=== PATIENT | female | born 1965 | race Caucasian/White ===

== ENCOUNTER 2020-08-31 07:06 | Day surgery (SDC) | payer MEDICARE, MEDICAID ==
[2020-08-30 11:39] LABS: BASOPHILS # (AUTO) 0.1 X10'3 (0-0.2); BASOPHILS % (AUTO) 1.1 % (0-1); EOSINOPHILS # (AUTO) 0.4 X10'3 (0-0.9); EOSINOPHILS % (AUTO) 8.7 % (0-6); HEMATOCRIT 26.9 % (35.0-45.0); HEMOGLOBIN 8.8 g/dl (12.0-16.0); LYMPHOCYTES # (AUTO) 1.4 X10'3 (1.1-4.8); LYMPHOCYTES % (AUTO) 29.7 % (21-51); MEAN CORPUSCULAR HEMOGLOBIN 34.7 PG (27.0-31.0); MEAN CORPUSCULAR HGB CONC 32.6 g/dL (33.0-36.5); MEAN CORPUSCULAR VOLUME 106.2 FL (78-98); MONOCYTES # (AUTO) 0.5 X10'3 (0-0.9); MONOCYTES % (AUTO) 9.6 % (2-12); NEUTROPHILS # (AUTO) 2.5 X10'3 (1.8-7.7); NEUTROPHILS % (AUTO) 50.9 % (42-75); PLATELET COUNT 242 X10'3 (140-440); RED BLOOD COUNT 2.54 X10'6 (4.20-5.60); RED CELL DISTRIBUTION WIDTH 14.2 % (11.5-14.5); WHITE BLOOD COUNT 4.9 X10'3 (4.5-11.0)
[2020-08-30 11:47] LABS: ALBUMIN 2.8 G/DL (3.4-5.0); ANION GAP 13 (8-16); BLOOD UREA NITROGEN 85 MG/DL (7-18); BUN/CREATININE RATIO 8.7 (6.6-38.0); CALCIUM 9.2 MG/DL (8.5-10.1); CHLORIDE 98 MMOL/L (99-107); CREATININE 9.78 MG/DL (0.40-0.90); GLUCOSE 94 MG/DL (70-104); POTASSIUM 4.8 MMOL/L (3.5-5.1); SODIUM 136 MMOL/L (135-145); TOTAL CARBON DIOXIDE 25.5 MMOL/L (24-32); eGFR 4 ML/MIN
[2020-08-30 11:55] LABS: PARTIAL THROMBOPLASTIN TIME 26 SECONDS (22-32)
[~2020-08-31] VITALS: Ht 160 cm; Wt 65.6 kg
[2020-08-31] VITALS (12 sets, daily range): BP systolic 107–156; BP diastolic 43–81
[2020-08-31] MEDS ORDERED: LORazepam 0.5 MG tablet PO PRN (07:25)
[2020-08-31] MEDS ORDERED: normal saline 1,000 ML IV SCH (07:25)
[2020-08-31] MEDS ORDERED: diphenhydrAMINE 25mg capsule PO PRN (07:25)
[2020-08-31] MEDS ORDERED: LIDOcaine/PRILOcaine 5gm cream TP ONE (07:30)
[2020-08-31] MEDS ORDERED: sodium bicarbonate (8.4%) inj. 75 ML in dextrose 5% water 500ml 500 ML IV SCH (07:30)
[2020-08-31] MEDS ORDERED: MEMA5TAB42 PO (07:32)
[2020-08-31] MEDS ORDERED: CALC500T11 PO (07:38)
[2020-08-31] MEDS ORDERED: LORA-512 PO (07:38)
[2020-08-31] MEDS ORDERED: AMLO2.5T2 PO (07:38)
[2020-08-31] MEDS ORDERED: LABE300T2 PO (07:38)
[2020-08-31] MEDS ORDERED: CALCIUM PO (07:38)
--- NOTE | 2020-08-31 08:00 | NUR ---
PT REFUSING IV IN FOOT STATES SHE WOULD LIKE HER ARM USED. 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 PT HAS WORKING FISTULA ON LEFT ARM THAT IS NOT TO BE USED. PT AGREED TO IV IN LOWER LEG IN PLACE OF FOOT IV REQUESTED BY MYSELF. EMLA CREAM APPLIED TO SITE AND ALLOWED TO NUMB. 20G PIV PLACED TO LEFT LOWER EXTREMITY, MASTER PRINTER NOTIFIED OF PTS IV STATUS. Jose Rafael TOMPKINS PICC RN
[2020-08-31] MEDS ORDERED: LIDOcaine 1% (10mg/ml)w/preservative injection 20ml MDV ONE (09:36)
[2020-08-31] MEDS ORDERED: midazolam 1 mg/ML 2ml injection ONE ×2 (09:36→10:59)
[2020-08-31] MEDS ORDERED: fentaNYL/PF 50MCG/1 ML 2ML syringe ONE (09:36)
[2020-08-31] MEDS ORDERED: heparin 1,000unit/ml 10ml vial 10 ML ONE (09:36)
[2020-08-31] MEDS ORDERED: nitroGLYCERIN-Tridil 50MG/D5W 250 ML IV ONE (09:37)
[2020-08-31] MEDS ORDERED: iohexol 350MG/ML 100ml bottle IV ONE (09:37)
[2020-08-31] MEDS ORDERED: iohexol 350 MG/ML 50ML vial IV ONE (09:37)
[2020-09-01 09:32] LABS: ISTAT HGB ART 8.8 g/dl (12.0-16.0); ISTAT Hct ART 26 %PCV (35-48); ISTAT O2 SATURATION ARTERIAL 98 % (95-98); ISTAT SOURCE ART
== END 2020-08-31 17:00 | disposition home or self-care (01) ==
LOC: SSTAY O 07:06 → MERGE 09:30 → SSTAY O 17:00
PROVIDERS: ATTEND Internal Medicine Cardiovascular Disease
DX: Z01.810 Encounter for preprocedural cardiovascular examination (principal); I25.10 Atherosclerotic heart disease of native coronary artery without angina pectoris; I12.0 Hypertensive chronic kidney disease with stage 5 chronic kidney disease or end stage renal disease; N18.6 End stage renal disease; E78.5 Hyperlipidemia, unspecified; Z72.89 Other problems related to lifestyle; F12.90 Cannabis use, unspecified, uncomplicated; Z88.8 Allergy status to other drugs, medicaments and biological substances; Z88.5 Allergy status to narcotic agent; Z88.2 Allergy status to sulfonamides; Z91.09 Other allergy status, other than to drugs and biological substances; Z79.899 Other long term (current) drug therapy; Z99.2 Dependence on renal dialysis
CPT/HCPCS: 36415; 76937; 80048; 82803; 85014; 85025; 85610; 85730; 93005; 93460; 99152; 99153; C1760; C1769; C1894; J1644; J2001; J2250; J3010; Q0163; Q9967; A6258; C1751; J3490

== ENCOUNTER 2021-12-27 05:58 | Day surgery (SDC) | payer BC, MEDICAID ==
[2021-12-27] VITALS (11 sets, daily range): BP systolic 148–198; BP diastolic 48–76
[~2021-12-27] VITALS: Ht 160 cm; Wt 60.8 kg
[~2021-12-27 05:58] MED LIST: AMLO2.5T2 PO; CALC500T11 PO; CALCIUM PO; LABE300T4 PO; LORA-512 PO; MEMA5TAB42 PO
[2021-12-27] MEDS ORDERED: LORA-512 PO (06:42)
[2021-12-27] MEDS ORDERED: MEMA5TAB PO (06:42)
[2021-12-27] MEDS ORDERED: acetylcysteine 200 MG/ml 4ml vial PO PRN (06:50)
[2021-12-27] MEDS ORDERED: LIDOcaine/PRILOcaine 5gm cream TP ONE (06:50)
[2021-12-27] MEDS ORDERED: normal saline 1,000 ML IV SCH (06:50)
[2021-12-27] MEDS: diphenhydrAMINE 25mg capsule PO PRN ×2 (07:06→08:12)
[2021-12-27] MEDS: LORazepam 0.5 MG tablet PO PRN ×2 (07:06→08:12)
[2021-12-27] MEDS ORDERED: sodium bicarbonate (8.4%) inj. 150 ML in dextrose 5%-water 1,000 ML IV ONE (07:15)
[2021-12-27 07:21] LABS: BASOPHILS # (AUTO) 0.1 X10'3 (0-0.2); BASOPHILS % (AUTO) 1.3 % (0-1); EOSINOPHILS # (AUTO) 0.6 X10'3 (0-0.9); EOSINOPHILS % (AUTO) 12.7 % (0-6); HEMOGLOBIN 8.8 g/dl (12.0-16.0); LYMPHOCYTES # (AUTO) 1.5 X10'3 (1.1-4.8); LYMPHOCYTES % (AUTO) 31.1 % (21-51); MEAN CORPUSCULAR HEMOGLOBIN 35.7 PG (27.0-31.0); MEAN CORPUSCULAR HGB CONC 33.9 g/dL (33.0-36.5); MEAN CORPUSCULAR VOLUME 105.4 FL (78-98); MONOCYTES # (AUTO) 0.5 X10'3 (0-0.9); NEUTROPHILS # (AUTO) 2.2 X10'3 (1.8-7.7); NEUTROPHILS % (AUTO) 44.9 % (42-75); PLATELET COUNT 254 X10'3 (140-440); RED BLOOD COUNT 2.47 X10'6 (4.20-5.60); RED CELL DISTRIBUTION WIDTH 14.5 % (11.5-14.5); WHITE BLOOD COUNT 4.9 X10'3 (4.5-11.0)
[2021-12-27] MEDS ORDERED: verapamil 2.5 mg/ml inj IV ONE (07:23)
[2021-12-27] MEDS ORDERED: nitroGLYCERIN-Tridil 50MG/D5W 250 ML IV ONE (07:23)
[2021-12-27] MEDS ORDERED: midazolam 1 mg/ML 2ml injection ONE ×2 (07:23→08:34)
[2021-12-27] MEDS ORDERED: iohexol 350MG/ML 100ml bottle IV ONE ×3 (07:24→09:15)
[2021-12-27] MEDS ORDERED: heparin 1,000unit/ml 10ml vial 10 ML ONE (07:24)
[2021-12-27] MEDS ORDERED: LIDOcaine 1% 30ml preserv. free vial ONE (07:24)
[2021-12-27] MEDS ORDERED: fentaNYL/PF 50MCG/1 ML 2ML syringe ONE (07:24)
--- NOTE | 2021-12-27 07:26 | NUR ---
Pt refused oral medications as ordered. Pt states she has been nauseated and does not want to take any oral medications this am.
[2021-12-27 07:36] LABS: APTT 22 SECONDS (22-32)
[2021-12-27 07:48] LABS: ALBUMIN 2.6 G/DL (3.4-5.0); ANION GAP 9 (8-16); BLOOD UREA NITROGEN 39 MG/DL (7-18); BUN/CREATININE RATIO 7.1 (6.6-38.0); CALCIUM 8.7 MG/DL (8.5-10.1); CHLORIDE 97 MMOL/L (99-107); CREATININE 5.52 MG/DL (0.40-0.90); GLUCOSE 83 MG/DL (70-104); POTASSIUM 3.9 MMOL/L (3.5-5.1); SODIUM 139 MMOL/L (135-145); TOTAL CARBON DIOXIDE 33.2 MMOL/L (24-32); eGFR 8 ML/MIN
[2021-12-27] MEDS ORDERED: diphenhydrAMINE 50 mg/ml inj ONE (08:13)
[2021-12-27] MEDS ORDERED: hydrALAZINE 20mg/ml inj. IV ONE (08:52)
[2021-12-27 09:58] LABS: ISTAT Hct MIX 28 %PCV (35-48); ISTAT O2 SATURATION MIX VENOUS 76 % (60-80); ISTAT SOURCE BLNK
[2021-12-27 10:07] LABS: ISTAT HGB ART 13.6 g/dl (12.0-16.0); ISTAT Hct ART 40 %PCV (35-48); ISTAT O2 SATURATION ARTERIAL 100 % (95-98); ISTAT SOURCE BLNK
[2021-12-27] MEDS ORDERED: HYDROcodone/acetaminophen 5mg/325mg tablet PO PRN (10:20)
[2021-12-27] MEDS ORDERED: HYDROcodone/acetaminophen 10/325mg tab PO PRN (10:20)
[2021-12-27] MEDS ORDERED: hydrALAZINE 20mg/ml inj. IV PRN (10:25)
--- NOTE | 2021-12-27 15:13 | NUR ---
Brought pt apple sauce and mandeep crackers as requested. pt sitting up at a 45 degree angle. VS stable as charted.
== END 2021-12-27 16:00 | disposition home or self-care (01) ==
LOC: SSTAY O 05:58
PROVIDERS: ATTEND Internal Medicine Cardiovascular Disease
DX: I25.10 Atherosclerotic heart disease of native coronary artery without angina pectoris (principal); N18.6 End stage renal disease; I73.9 Peripheral vascular disease, unspecified; Z99.2 Dependence on renal dialysis; Z79.899 Other long term (current) drug therapy; Z98.890 Other specified postprocedural states
CPT/HCPCS: 36415; 76937; 80048; 82803; 85014; 85025; 85610; 85730; 93005; 93460; 99152; 99153; C1751; C1760; C1769; C1894; J0360; J1200; J1644; J2250; J3010; J3490; J7030; J7070; Q9967; A4620; A6258; Q0163

== ENCOUNTER 2023-03-27 06:45 | Day surgery (SDC) | payer MEDICARE, MEDICAID ==
[2023-03-26 11:57] LABS: BASOPHILS # (AUTO) 0.1 X10'3 (0-0.2); BASOPHILS % (AUTO) 0.6 % (0-1); EOSINOPHILS # (AUTO) 0.1 X10'3 (0-0.9); EOSINOPHILS % (AUTO) 0.9 % (0-6); HEMOGLOBIN 12.9 g/dl (12.0-16.0); LYMPHOCYTES # (AUTO) 0.8 X10'3 (1.1-4.8); LYMPHOCYTES % (AUTO) 8.6 % (21-51); MEAN CORPUSCULAR HEMOGLOBIN 31.6 PG (27.0-31.0); MEAN CORPUSCULAR VOLUME 95.8 FL (78-98); MEAN PLATELET VOLUME 8.8 FL (7.4-10.4); MONOCYTES # (AUTO) 0.7 X10'3 (0-0.9); MONOCYTES % (AUTO) 8.1 % (2-12); NEUTROPHILS # (AUTO) 7.4 X10'3 (1.8-7.7); NEUTROPHILS % (AUTO) 81.8 % (42-75); PLATELET COUNT 262 X10'3 (140-440); RED BLOOD COUNT 4.08 X10'6 (4.20-5.60); RED CELL DISTRIBUTION WIDTH 20.2 % (11.5-14.5); WHITE BLOOD COUNT 9.1 X10'3 (4.5-11.0)
[2023-03-26 12:03] LABS: ANION GAP 10 (8-16); BLOOD UREA NITROGEN 28 MG/DL (7-18); BUN/CREATININE RATIO 18.4 (10.0-20.0); CALCIUM 9.3 MG/DL (8.5-10.1); CHLORIDE 100 MMOL/L (99-107); CREATININE 1.52 MG/DL (0.40-0.90); GLUCOSE 117 MG/DL (70-104); POTASSIUM 3.7 MMOL/L (3.5-5.1); SODIUM 135 MMOL/L (135-145); TOTAL CARBON DIOXIDE 25.2 MMOL/L (24-32); eGFR 35 ML/MIN
[2023-03-26 12:10] LABS: ANISOCYTOSIS 3+; PLATELET ESTIMATE NORMAL
[2023-03-27] VITALS (11 sets, daily range): BP systolic 152–190; BP diastolic 43–109; PULSE 52–67; RESP 16–20; TEMP 97.5; O2SAT 96–99
[~2023-03-27] VITALS: Ht 162.6 cm; Wt 62.4 kg
[~2023-03-27 06:45] MED LIST changes: -AMLO2.5T2 PO; -CALCIUM PO; +MEMA5TAB PO; -MEMA5TAB42 PO
[2023-03-27] MEDS ORDERED: LORazepam 0.5 MG tablet PO ONE (07:00)
[2023-03-27] MEDS ORDERED: diphenhydrAMINE 25mg capsule PO ONE (07:00)
[2023-03-27] MEDS ORDERED: normal saline 1000ml 1,000 ML IV SCH (07:00)
[2023-03-27] MEDS ORDERED: atropine 0.1mg/ml 10ml syringe IV ONE (07:00)
[2023-03-27] MEDS ORDERED: amiodarone 150mg/dext, iso-os 100 ML IV ONE (07:00)
[2023-03-27] MEDS ORDERED: morphine 10mg/ml inj. IV ONE (07:00)
[2023-03-27] MEDS ORDERED: MIDAZolam 1mg/ml 10ml vial IV ONE (07:00)
[2023-03-27] MEDS ORDERED: fentaNYL/PF 50MCG/1 ML 2ML syringe IV ONE (07:20)
[2023-03-27] MEDS ORDERED: AMI200T PO (07:31)
[2023-03-27] MEDS ORDERED: [UNRECOGNIZED DRUG - CODE] PO (07:31)
[2023-03-27] MEDS ORDERED: LORA-512 PO (07:31)
[2023-03-27] MEDS ORDERED: METO75TA PO (07:31)
[2023-03-27] MEDS ORDERED: APIX5TAB3 PO (07:31)
[2023-03-27] MEDS ORDERED: TACR1CAP PO (07:31)
[2023-03-27] MEDS ORDERED: PRE5T PO (07:31)
== END 2023-03-27 09:35 | disposition home or self-care (01) ==
LOC: SSTAY O 06:45
PROVIDERS: ATTEND Internal Medicine Cardiovascular Disease
DX: I48.0 Paroxysmal atrial fibrillation (principal); I25.10 Atherosclerotic heart disease of native coronary artery without angina pectoris; I12.0 Hypertensive chronic kidney disease with stage 5 chronic kidney disease or end stage renal disease; N18.6 End stage renal disease; E78.5 Hyperlipidemia, unspecified; I27.20 Pulmonary hypertension, unspecified; I34.0 Nonrheumatic mitral (valve) insufficiency; K21.9 Gastro-esophageal reflux disease without esophagitis; D69.0 Allergic purpura; Z88.8 Allergy status to other drugs, medicaments and biological substances; Z88.5 Allergy status to narcotic agent; Z88.2 Allergy status to sulfonamides; Z91.048 Other nonmedicinal substance allergy status; Z98.890 Other specified postprocedural states; Z94.0 Kidney transplant status; F12.90 Cannabis use, unspecified, uncomplicated; Z82.3 Family history of stroke; Z82.49 Family history of ischemic heart disease and other diseases of the circulatory system; Z80.8 Family history of malignant neoplasm of other organs or systems
CPT/HCPCS: 36415; 80048; 85025; 85610; 92960; 93005; J2250; J3010; J7030; 85008; A4620; A6258